=== PATIENT | male | born 1955 | race Caucasian/White ===

== ENCOUNTER 2024-07-08 12:01 | Day surgery (SDC) | payer MEDICARE, OTHER ==
[2024-07-08] MEDS: Phenylephrine 2.5% Ophth Soln 2 ML Bot EYELF SCH (11:43)
[2024-07-08] MEDS: Tetracaine HCl/PF 0.5% 4 ML Bottle EYEBOTH SCH (11:43)
[2024-07-08] MEDS: Brimonidine 0.2% Ophth Soln 5 ML Bottle EYELF SCH (11:43)
[2024-07-08] MEDS: Lidocaine 1% PF 2 ML SDV INJECT SCH (11:43)
[2024-07-08] MEDS: Polymyxin B/Trimethoprim 10 ML Bottle EYELF SCH (11:44)
[2024-07-08] MEDS: Pilocarpine 4% Ophth Soln 15 ML Bot EYELF SCH (11:44)
[2024-07-08] MEDS: Cefuroxime 10 MG/ML SYRINGE EYELF SCH (11:44)
[2024-07-08] MEDS: Tropicamide 1% Ophth Soln 3 ML Bottle EYELF SCH (13:01)
== END 2024-07-08 14:55 ==
LOC: JD.SDS 12:01
PROVIDERS: ATTEND Ophthalmology
DX: E11.36 Type 2 diabetes mellitus with diabetic cataract (principal); H21.81 Floppy iris syndrome; H21.42 Pupillary membranes, left eye; I10 Essential (primary) hypertension; E78.00 Pure hypercholesterolemia, unspecified; K21.9 Gastro-esophageal reflux disease without esophagitis; Z79.899 Other long term (current) drug therapy
CPT/HCPCS: 66982; A9270; J0697; J3490; V2632

== ENCOUNTER → 2024-08-05 | Day surgery (SDC) | payer MEDICARE, OTHER ==
[2024-08-05] MEDS: Phenylephrine 2.5% Ophth Soln 2 ML Bot EYERT SCH (07:30)
[2024-08-05] MEDS: Lidocaine 1% PF 2 ML SDV INJECT SCH (07:31)
[2024-08-05] MEDS: Tetracaine HCl/PF 0.5% 4 ML Bottle EYEBOTH SCH (07:31)
[2024-08-05] MEDS: Cefuroxime 10 MG/ML SYRINGE EYERT SCH (07:31)
[2024-08-05] MEDS: Polymyxin B/Trimethoprim 10 ML Bottle EYERT SCH (07:32)
[2024-08-05] MEDS: Pilocarpine 4% Ophth Soln 15 ML Bot EYERT SCH (07:32)
[2024-08-05] MEDS: Brimonidine 0.2% Ophth Soln 5 ML Bottle EYERT SCH (07:32)
[2024-08-05] MEDS: Tropicamide 1% Ophth Soln 3 ML Bottle EYERT SCH (12:20)
== END ==
LOC: JD.SDS 10:55
PROVIDERS: ATTEND Ophthalmology
DX: E11.36 Type 2 diabetes mellitus with diabetic cataract (principal); H25.811 Combined forms of age-related cataract, right eye; H40.031 Anatomical narrow angle, right eye; H21.81 Floppy iris syndrome; F31.9 Bipolar disorder, unspecified; F03.90 Unspecified dementia, unspecified severity, without behavioral disturbance, psychotic disturbance, mood disturbance, and anxiety; I10 Essential (primary) hypertension; K21.9 Gastro-esophageal reflux disease without esophagitis; Z79.4 Long term (current) use of insulin; Z79.899 Other long term (current) drug therapy
CPT/HCPCS: 66984; A9270; J0697; J3490

== ENCOUNTER 2024-08-13 18:12 | Emergency (ER) | payer MEDICARE, OTHER ==
[2024-08-13 18:29] LABS: BASOPHILS PERCENT AUTO 0.4 % (0.0-1.0); EOSINOPHILS ABSOLUTE AUTO 0.3 K/mm3 (0.0-0.4); EOSINOPHILS PERCENT AUTO 4.2 % (0.0-6.0); HEMOGLOBIN 12.7 gm/dl (14.0-18.0); IMMATURE GRAN ABSOLUTE AUTO 0.06 K/mm3 (0.00-0.05); IMMATURE GRAN PERCENT AUTO 0.8 % (0.0-0.4); MEAN CORPUSCULAR HEMOGLOBIN 31.3 pg (28.0-32.0); MEAN CORPUSCULAR HGB CONC 32.6 g/dl (32.0-36.0); MEAN CORPUSCULAR VOLUME 96.1 fl (83.0-99.0); MEAN PLATELET VOLUME 8.7 fl (9.4-12.4); MONOCYTES ABSOLUTE AUTO 0.7 K/mm3 (0.0-0.8); MONOCYTES PERCENT AUTO 9.3 % (0.0-8.0); NEUTROPHILS ABSOLUTE AUTO 4.7 K/mm3 (1.8-7.7); NEUTROPHILS PERCENT AUTO 59.3 % (41.0-71.0); PLATELET COUNT,PLT 169 K/mm3 (150-400); RED BLOOD CELL COUNT 4.06 M/mm3 (4.52-5.90); WHITE BLOOD CELL COUNT,WBC 7.86 K/mm3 (3.9-11.3)
[2024-08-13 18:46] LABS: A/G RATIO 0.8 (1-2); ALBUMIN 3.2 g/dl (3.4-5.0); ANION GAP 10.6 (5-15); BILIRUBIN TOTAL 0.3 mg/dL (0.2-1.0); BUN/CREATININE RATIO 11.1 (14-18); CALCIUM 9.6 mg/dL (8.5-10.1); CREATININE 0.9 mg/dL (0.7-1.3); EST CRCL DRUG DOSING (CG) 85.02 mL/min; PROTEIN TOTAL,TP 7.3 g/dl (6.4-8.2)
[2024-08-13 18:54] LABS: POTASSIUM,K 4.6 mEq/L (3.5-5.1)
[2024-08-13] MEDS: Aluminum Hydroxide/Magnesium Hydroxide/Simethicone Susp 30 ML Cup PO ONE (19:09)
== END 2024-08-13 22:02 ==
LOC: JD.ED 18:12
DX: K21.9 Gastro-esophageal reflux disease without esophagitis (principal); E78.00 Pure hypercholesterolemia, unspecified; E11.9 Type 2 diabetes mellitus without complications; I10 Essential (primary) hypertension; Z88.5 Allergy status to narcotic agent; Z88.8 Allergy status to other drugs, medicaments and biological substances; Z88.6 Allergy status to analgesic agent; Z79.84 Long term (current) use of oral hypoglycemic drugs; Z79.899 Other long term (current) drug therapy; Z79.4 Long term (current) use of insulin
CPT/HCPCS: 36415; 71046; 80053; 84484; 85025; 93005; 99285; A9270; 93010; 99284